=== PATIENT | female | born 1975 | race Two or more races ===

== ENCOUNTER 2017-07-22 12:30 | Outpatient (CLI) | payer BC | END 2017-07-22 23:59 | disposition home or self-care (01) | LOC: WOU 12:30 | PROVIDERS: ATTEND Podiatrist Foot & Ankle Surgery | DX: S92.422D Displaced fracture of distal phalanx of left great toe, subsequent encounter for fracture with routine healing (principal); S91.212D Laceration without foreign body of left great toe with damage to nail, subsequent encounter; X58.XXXD Exposure to other specified factors, subsequent encounter; Z83.3 Family history of diabetes mellitus; I10 Essential (primary) hypertension; L60.1 Onycholysis | CPT/HCPCS: 99205; A6402; G0463 ==

== ENCOUNTER 2017-08-12 12:35 | Outpatient (CLI) | payer BC | END 2017-08-12 23:59 | disposition home or self-care (01) | LOC: WOU 12:35 | PROVIDERS: ATTEND Podiatrist Foot & Ankle Surgery | DX: S91.212D Laceration without foreign body of left great toe with damage to nail, subsequent encounter (principal); X58.XXXD Exposure to other specified factors, subsequent encounter; S92.425D Nondisplaced fracture of distal phalanx of left great toe, subsequent encounter for fracture with routine healing; L60.1 Onycholysis | CPT/HCPCS: G0463 ==

== ENCOUNTER 2017-08-12 13:46 | Outpatient (CLI) | payer BC | END 2017-08-12 23:59 | disposition home or self-care (01) | LOC: RAD 13:46 | PROVIDERS: ATTEND Podiatrist Foot & Ankle Surgery | DX: S92.425A Nondisplaced fracture of distal phalanx of left great toe, initial encounter for closed fracture (principal); M25.475 Effusion, left foot; X58.XXXA Exposure to other specified factors, initial encounter; Y93.89 Activity, other specified; Y92.89 Other specified places as the place of occurrence of the external cause; Y99.8 Other external cause status | CPT/HCPCS: 73630-TC ==

== ENCOUNTER 2017-08-19 11:40 | Outpatient (CLI) | payer BC | END 2017-08-19 23:59 | disposition home or self-care (01) | LOC: WOU 11:40 | PROVIDERS: ATTEND Podiatrist Foot & Ankle Surgery | DX: S91.212D Laceration without foreign body of left great toe with damage to nail, subsequent encounter (principal); X58.XXXD Exposure to other specified factors, subsequent encounter; S92.425D Nondisplaced fracture of distal phalanx of left great toe, subsequent encounter for fracture with routine healing | CPT/HCPCS: G0277; G0463 ==

== ENCOUNTER 2020-02-27 23:30 | Emergency (ER) | payer BC ==
[~2020-02-27] VITALS: Ht 167.6 cm; Wt 72.6 kg
[2020-02-27] MEDS ORDERED: LIDOCAINE 2% 20 ML MDV ONE (23:47)
[2020-02-27] MEDS ORDERED: SODIUM BICARBONATE 5 ML VIAL ONE (23:48)
[2020-02-27] MEDS ORDERED: CEPHALEXIN MONOHYDRATE 500 MG CAPSULE PO ONE (23:50)
--- NOTE | 2020-02-27 23:52 | NUR ---
ER MD AT BEDSIDE FOR LACERATION REPAIR.
[2020-02-28] MEDS ORDERED: SODIUM BICARBONATE 5 ML VIAL MC ONE
[2020-02-28] MEDS ORDERED: LIDOCAINE 2% 20 ML MDV TP ONE
[2020-02-28] MEDS ORDERED: CEPHALEXIN MONOHYDRATE 500 MG CAPSULE PO ONE
[2020-02-28 00:09] VITALS: BP 160/107
--- NOTE | 2020-02-28 00:19 | NUR ---
DR RODRIGES MADE AWARE OF THE HIGH BP WITH NO NEW ORDER.
--- NOTE | 2020-02-28 00:23 | NUR ---
pt medically clear for d/c. Pt received sutures at the bed side by Dr. Chapman. and area was covered by DD. Patient discharged to home in stable condition. Rx and Written and verbal after care instructions given. Patient verbalized understanding of instruction.
== END 2020-02-28 00:26 | disposition home or self-care (01) ==
LOC: ER 23:30
DX: S61.216A Laceration without foreign body of right little finger without damage to nail, initial encounter (principal); I10 Essential (primary) hypertension; W26.0XXA Contact with knife, initial encounter; Y93.89 Activity, other specified; Y92.89 Other specified places as the place of occurrence of the external cause; Y99.8 Other external cause status
CPT/HCPCS: 12001; 99283; A6403; J3490 ×2

== ENCOUNTER 2023-09-13 09:52 | Emergency (ER) | payer BC ==
[~2023-09-13] VITALS: Ht 167.6 cm; Wt 78.0 kg
[2023-09-13] MEDS ORDERED: ACETAMINOPHEN ES 500 MG TABLET PO ONE (10:30)
[2023-09-13] MEDS ORDERED: IV NS 0.9% 1,000 ML BAG IV ONE (10:30)
[2023-09-13] MEDS ORDERED: ONDANSETRON HCL/PF 4 MG/2 ML VIAL IVP ONE (10:30)
[2023-09-13] MEDS ORDERED: ONDANSETRON HCL/PF 4 MG/2 ML VIAL ONE ×2 (10:35→14:16)
[2023-09-13] MEDS ORDERED: ACETAMINOPHEN ES 500 MG TABLET ONE (10:36)
[2023-09-13 12:07] LABS: CALCIUM, SERUM 8.7 mg/dL (8.5-10.1); CARBON DIOXIDE 21 mmol/L (21-32); CHLORIDE 98 mmol/L (98-107); CREATININE 0.8 mg/dL (0.6-1.3); GLUCOSE 121 mg/dL (74-106); POTASSIUM 2.9 mmol/L (3.5-5.1); SODIUM SERUM 132 mmol/L (136-145); UREA NITROGEN, BLOOD 8 mg/dL (7-18)
[2023-09-13 13:05] LABS: BASOPHILS % (AUTO) 0.3 % (0.0-2.0); EOSINOPHILS % (AUTO) 0.1 % (0.0-6.0); HEMATOCRIT 35 % (33-45); HEMOGLOBIN 12.2 g/dL (11.5-14.8); LYMPHOCYTES # (AUTO) 0.2 K/uL (0.8-4.8); LYMPHOCYTES % (AUTO) 5.2 % (20.0-44.0); MEAN CORPUSCULAR HEMOGLOBIN 29 PG (26.0-33.0); MEAN CORPUSCULAR HGB CONC 35 g/dl (31.0-36.0); MEAN CORPUSCULAR VOLUME 85 fL (82-100); MONOCYTES # (AUTO) 0.3 K/uL (0.1-1.30); MONOCYTES % (AUTO) 9.1 % (2.0-12.0); NEUTROPHILS # (AUTO) 3.2 K/uL (1.8-8.9); NEUTROPHILS % (AUTO) 85.3 % (43.0-81.0); PLATELET COUNT (AUTO) 206 K/uL (150-450); RED BLOOD CELL COUNT(AUTO) 4.17 MIL/uL (4.0-5.2); RED CELL DISTRIBUTION WIDTH 12.8 % (11.5-15.0); WHITE BLOOD COUNT (AUTO) 3.7 K/uL (4.3-11.0)
[2023-09-13] MEDS ORDERED: POTASSIUM CHLORIDE 20 MEQ TAB.PRT.SR PO ONE ×2 (13:30→13:44)
[2023-09-13] MEDS ORDERED: ONDANSETRON HCL/PF - ER 4 MG/2 ML VIAL IV ONE (14:00)
[2023-09-13] MEDS ORDERED: IOHEXOL-350 100 ML VIAL IV ONE (14:34)
[2023-09-13] MEDS ORDERED: CT SWABBABLE VALVE TRANS SET 1 EA INFUS.SET MC ONE (14:34)
[2023-09-13] MEDS ORDERED: IV NS 0.9% 250 ML IV ONE (14:34)
[2023-09-13 14:46] LABS: APPEARANCE,URINE CLEAR (CLEAR); BILIRUBIN,URINE NEGATIVE (NEGATIVE); BLOOD, URINE 2+ Ery/uL (NEGATIVE); COLOR,URINE YELLOW (YELLOW); KETONES,URINE 3+ mg/dL (NEGATIVE); LEUKOCYTE ESTERASE ,URINE NEGATIVE (NEGATIVE); NITRITE, URINE NEGATIVE (NEGATIVE); PH,URINE 6.5 (5.0-8.0); PROTEIN,URINE 1+ mg/dl (NEGATIVE); UGLUCOSE NEGATIVE (NEGATIVE); UROBILINOGEN,URINE 0.2 EU/dL (0.2)
[2023-09-13 14:54] LABS: PREGNANCY TEST URINE QUAL NEGATIVE (NEGATIVE)
[2023-09-13] MEDS ORDERED: ONDA4TAB11 PO ×2 (15:40→15:52)
[2023-09-13 16:00] VITALS: BP 128/74; TEMP 98.8; O2SAT 100
[2023-09-13 16:12] LABS: RBC,URINE 21-50 /HPF (0-2); WBC,URINE 0-2 /HPF (0-3)
[2023-09-13 16:13] LABS: ADD URINE CULTURE NO; BACTERIA,URINE None seen /HPF (None Seen)
[2023-09-13 16:15] LABS: SQUAMOUS EPITHELIAL CELL,UR 0-2 /HPF (None Seen)
== END 2023-09-13 16:02 | disposition home or self-care (01) ==
LOC: ER 09:52
DX: B34.9 Viral infection, unspecified (principal); E87.6 Hypokalemia; R11.2 Nausea with vomiting, unspecified; R06.02 Shortness of breath; I10 Essential (primary) hypertension; Z20.822 Contact with and (suspected) exposure to COVID-19
CPT/HCPCS: 99285; 96374; 71275; 71045; 96361; 87426; 93005; 87804 ×2; 85025; 80048; 83735; 85378; 84703; 81001; 36415; 84484; 96376; J2405 ×3; J7030; J7050; Q9967